=== PATIENT | male | born 1995 | race Caucasian/White ===

== ENCOUNTER 2017-02-09 20:39 | Emergency (ER) | payer OTHER ==
--- NOTE | ~2017-02-09 | ER ---
PATIENT'S NAME: NESTOR MATUTE [facility] AGE: 21 Y [address] ROOM: [place] [address] LOCATION: ED ADMIT DATE: 02/09/2017 ER/Outpatient Report DISCHARGE DATE: 02/09/2017 FAMILY PHYSICIAN: Bill Saul MD ATTENDING PHYSICIAN: Bobo Gordon Time Seen: 2110 hours. HISTORY OF PRESENT ILLNESS: This is a 21-year-old male with a history of seizures, who had a witnessed seizure that occurred at school. He states he was lifting weights, he does not remember exactly what he was doing. A friend who was with him witnessed about 3 minutes of generalized tonic-clonic activity, and the patient was postictal afterwards. En route to the hospital, he complained of a headache and nausea and vomiting. PAST MEDICAL HISTORY: Significant for seizures. MEDICATIONS: He currently takes Keppra, there has been no recent changes in his dose and he has not missed any doses. PHYSICAL EXAMINATION: GENERAL: Alert and cooperative male, in no acute distress. He is still having some nausea and dry heaves in the emergency department. SKIN: Warm and damp. Color was pale. HEENT: Head, ears, eyes, nose, and throat were normal. NECK: Supple. HEART: Normal. LUNGS: Normal. ABDOMEN: Soft. EXTREMITIES: Normal. NEUROLOGIC: Normal. EMERGENCY DEPARTMENT COURSE: An IV was established. He was given Zofran for nausea. He was given Ativan 1 mg IV. He had no additional seizures in the emergency department. His headache and nausea and vomiting gradually resolved. CBC and metabolic panel are normal. Keppra level is pending. ASSESSMENT: Recurrent seizure. PLAN: PATIENT'S NAME: NESTOR MATUTE [facility] AGE: 21 Y [address] ROOM: [place] [address] LOCATION: ED ADMIT DATE: 02/09/2017 ER/Outpatient Report DISCHARGE DATE: 02/09/2017 FAMILY PHYSICIAN: Bill Saul MD ATTENDING PHYSICIAN: Bobo Gordon Follow up with his neurologist, call this week to arrange followup. BOBO GORDON MD JDB/modl /[id number] d: 02/10/17 0503 t: 02/12/17 0550, OUTPATIENT REPORT
[~2017-02-09 20:39] MED LIST: CITROMA PO; DEPAKOTE EXTEN500 MG PO; DULCOLAX10 MG R; FLEXERIL10 MG PO; OXYCONTIN EXTEN10 MG PO; OXYCONTIN10 MG PO; ROXICODONE 5MG (5 MG PO; TYLENOL/COD#31 TAB PO
[2017-02-09 21:07] LABS: BASOPHIL % 0.5 %; EOSINOPHIL % 0.5 %; HEMATOCRIT 42.7 % (37.0-53.0); HEMOGLOBIN 14.7 g/dL (12.0-17.0); IMMATURE GRANULOCYTE % 0.3 %; LYMPHOCYTE # 2.1 K/uL (0.8-4.0); LYMPHOCYTE % 24.2 %; MCH 29.9 pg (27.0-34.0); MCHC 34.4 gm/dL (32.0-36.5); MCV 86.8 fl (83.0-98.0); MONOCYTE # 0.7 K/uL (0.0-1.0); MONOCYTE % 8.1 %; MPV 9.3 fl (9.4-12.4); NEUTROPHIL # (ANC) 5.9 K/uL (1.4-9.0); NEUTROPHIL % 66.4 %; NRBC % 0 /100WBC (0-0.00); PLATELET COUNT 352 K/uL (150-450); RBC 4.92 M/uL (4.00-6.00); RDW-CV 12.5 % (11.9-14.6); WBC 8.8 K/uL (4.0-11.0)
[2017-02-09 21:23] LABS: ALBUMIN 4.3 gm/dL (3.5-5.0); ANION GAP 14.6 (10.0-19.0); CALCIUM 9.3 mg/dL (8.5-10.5); CREATININE 1.2 mg/dL (0.6-1.3); POTASSIUM 3.6 mMol/L (3.7-5.1); TOTAL BILIRUBIN 0.8 mg/dL (0.0-1.5); TOTAL PROTEIN 7.5 g/dL (6.0-8.4)
== END 2017-02-09 22:39 | disposition disaster alternative care site (69) ==
LOC: GMED 20:39
PROVIDERS: Emergency Medicine
DX: G40.909 Epilepsy, unspecified, not intractable, without status epilepticus (principal); Z79.899 Other long term (current) drug therapy; Z98.890 Other specified postprocedural states
CPT/HCPCS: J2060; J2405